=== PATIENT | female | born 1960 | race American Indian/Alaskan Native ===

== ENCOUNTER 2021-03-10 00:11 | Emergency (ER) | payer MEDICARE ==
--- NOTE | 2021-03-10 01:17 | Emergency Department Report ---
ED Psych HPI - General Chief Complaint: Psych Stated Complaint: MH EVAL Time Seen by Provider: 03/10/21 00:50 Source: patient, EMS Mode of arrival: Ambulatory Limitations: No Limitations - History of Present Illness Initial Comments: Patient is a 60-year-old female who presents emergency room with complaints of suicidal ideation, hallucinations. Patient states that she is off her meds. Patient states her plan is to overdose. Patient denies physical symptoms. Patient states she feels depressed. Patient denies chest pain shortness of breath. Patient denies fever and chills. Patient denies recent travel. Patient denies recent international travel. Patient denies exposure to the novel coronavirus. Patient denies sick contacts. Patient denies fever and chills. Patient denies cough. Patient denies diarrhea. Patient denies coming in contact with anybody with symptoms of the novel coronavirus. Patient states she is off her medications. MD Complaint: suicidal ideation, feels depressed -: Sudden, week(s) Associated Psychiatric Symptoms: depression, suicidal ideation, racing thoughts, auditory hallucinations, visual hallucinations History of same: Yes Quality: constant Improves With: none Worsens With: none Context: not taking psychiatric, significant life stressor Associated Symptoms: denies: confusion, headache, shortness of breath, nausea, vomiting, syncope, insomnia Treatments Prior to Arrival: none If Self Harm: admits thoughts of, has plan - Related Data Allergies Allergy/AdvReac Type Severity Reaction Status Date / Time No Known Allergies Allergy Verified 03/10/21 00:30 ED Review of Systems ROS: Stated complaint: MH EVAL Other details as noted in HPI Constitutional: denies: chills, fever Eyes: denies: eye pain, eye discharge, vision change ENT: denies: ear pain, throat pain Respiratory: denies: cough, shortness of breath, wheezing Cardiovascular: denies: chest pain, palpitations Endocrine: no symptoms reported Gastrointestinal: denies: abdominal pain, nausea, diarrhea Genitourinary: denies: urgency, dysuria, discharge Musculoskeletal: denies: back pain, joint swelling, arthralgia Skin: denies: rash, lesions Neurological: denies: headache, weakness, paresthesias Psychiatric: as per HPI, depression, auditory hallucinations, visual halluci nations, suicidal thoughts. denies: anxiety Hematological/Lymphatic: denies: easy bleeding, easy bruising ED Past Medical Hx - Past Medical History Previous Medical History?: Yes Hx Psychiatric Treatment: Yes - Surgical History Past Surgical History?: No - Family History Family history: no significant - Social History Smoking Status: Never Smoker Substance Use Type: Alcohol ED Physical Exam - General Limitations: No Limitations General appearance: alert, in no apparent distress - Head Head exam: Present: atraumatic, normocephalic - Eye Eye exam: Present: normal appearance - ENT ENT exam: Present: mucous membranes moist - Neck Neck exam: Present: normal inspection - Respiratory Respiratory exam: Present: normal lung sounds bilaterally. Absent: respiratory distress - Cardiovascular Cardiovascular Exam: Present: regular rate, normal rhythm. Absent: systolic murmur, diastolic murmur, rubs, gallop - GI/Abdominal GI/Abdominal exam: Present: soft, normal bowel sounds - Extremities Exam Extremities exam: Present: normal inspection - Back Exam Back exam: Present: normal inspection - Neurological Exam Neurological exam: Present: alert, oriented X3 - Psychiatric Psychiatric exam: Present: depressed, flat affect, suicidal ideation - Skin Skin exam: Present: warm, dry, intact, normal color. Absent: rash ED Course Vital Signs 03/10/21 03/10/21 03/10/21 00:30 00:59 01:13 Temperature 98.7 F 98.7 F Pulse Rate 89 89 Respiratory 16 16 16 Rate Blood Pressure 136/78 Blood Pressure 136/78 [Left] O2 Sat by Pulse 98 98 98 Oximetry 03/10/21 07:43 Temperature 98.6 F Pulse Rate 69 Respiratory 20 Rate Blood Pressure Blood Pressure 157/74 [Left] O2 Sat by Pulse 98 Oximetry - Reevaluation(s) Reevaluation #1: Patient placed on a ER hold. 03/10/21 01:15 Reevaluation #2: Patient is medically cleared. Patient will remain in the ER as an ER hold until the patient is cleared by our psychiatry team. Patient's final disposition will come from our psychiatry team. 03/10/21 03:48 ED Medical Decision Making - Lab Data Result diagrams: 03/10/21 01:27 03/10/21 10:35 - Medical Decision Making Patient is a 60-year-old female who presents emergency room with complaints of being off her meds and having suicidal ideations. Patient also has a plan. Patient also complains of hallucinations. Patient had labs done which were essentially unremarkable except for acute intoxication. Patient is medically cleared. Patient will remain in the ER as an ER hold until the patient is cleared by our psychiatry team. Patient's final disposition will come from our psychiatry team. - Differential Diagnosis Noncompliance, suicidal ideations, hallucinations, psychosis Critical care attestation.: If time is entered above; I have spent that time in minutes in the direct care of this critically ill patient, excluding procedure time. ED Disposition Clinical Impression: Suicidal ideations, Hallucinations Acute alcohol intoxication Qualifiers: Complication of substance-induced condition: with unspecified complication Qualified Code(s): F10.929 - Alcohol use, unspecified with intoxication, unspecified Disposition: HOME / SELF CARE / HOMELESS Is pt being admited?: No Does the pt Need Aspirin: No Condition: Stable Instructions: Binge-Drinking Information, Adult, Suicidal Feelings: How to Help Yourself Additional Instructions: OUTPATIENT MENTAL HEALTH RESOURCES [facility], [facility] Jeannie Collado MD: [address], [address] [facility] [address] [place] [address] [place] [address] [facility]: [facility] [place] [address] [place] [address] [place] [address] [phone] [facility]: [facility]: [address] [facility] [address] [place] [address] [place] [address] [facility] [address] [facility]: Sp Smith MD: [address] [facility] 110 [facility] [id number] [facility]: [address] [place], [place] [id number] [phone] [place] CRISIS AND ACCESS LINE: HOMELESS RESOURCES: [facility] NEED HELP? If you are in need of help or know someone who does, please contact us at [email or web address] call , or come to our offices at [address] [place] [address], [place] [address], Sunday-Sunday beginning 9:30 AM-1:30 PM -Support services help people with getting identification and legal documents -Homeless verification letter -Facesheet (if needed) [facility] Males only Admission at 7am Mon to Sun Address: [place] [address] Client Engagement [phone] Regular program admission occurs Sunday through Sunday at 7:00 amand operates on a first come, first serve basis.Because we cant anticipate program availability in advance andprogram spots are in high demand, we recommend arriving early. Space fills up fast! Next steps can include: Assignment to a [facility] program bed Connection to and placement in a partner program, or Referral to a partner agency [facility]: PETTY Whitman Address: [address] [place] [id number] How do I join the [facility] housing program? Our housing programs are offered based on availability. If you are looking to participate in our housing program, simply call [phone] to find out if we have available space. Since we do receive many calls, please allow up to 48 hours for one of our housing specialists to return your call. If we do not have vacancies, we suggest callingthe [facility] hotline at 211 for additional housing options. [facility] Admission from 8am to 10am Daily No intake until 05/24/20 Address: [address] [place] [id number] [facility] WOMEN and FAMILY Admission Address: [address] [place] [id number] Transitional Shelter Providers: Triston Munguia Crow [phone] Address: [address] [place], [place] [id number] Original: Cm Akers [phone] Ms. Rivas: Renee Faye [phone] Ms. Kate Ryan Cm [facility] [phone] Ms. Grewal: [facility] [phone] [facility] Home: Avani Castañeda [phone] [facility] Referrals: PRIMARY CAREMD [Primary Care Provider] - 3-5 Days LUCIANO GARCIA MD [Staff Physician] - 3-5 Days Time of Disposition: 03:47
[2021-03-10 01:46] LABS: Basophils % (Auto) 0.2 % (0.0-1.8); Eosinophils % (Auto) 0.8 % (0.0-4.3); Hematocrit 37.9 % (30.3-42.9); Hemoglobin 12.7 gm/dl (10.1-14.3); Lymphocytes # (Auto) 1.5 K/mm3 (1.2-5.4); Lymphocytes % (Auto) 30.8 % (13.4-35.0); Mean Corpuscular HGB Conc 34 % (30-34); Mean Corpuscular Volume 98 fl (79-97); Monocytes # (Auto) 0.4 K/mm3 (0.0-0.8); Monocytes % (Auto) 7.6 % (0.0-7.3); Platelet Count 107 K/mm3 (140-440); Red Blood Count 3.86 M/mm3 (3.65-5.03); Red Cell Distribution Width 14.7 % (13.2-15.2)
[2021-03-10 02:02] LABS: Alanine Aminotransferase 16 units/L (7-56); Albumin 4.3 g/dL (3.9-5); Blood Urea Nitrogen 13 mg/dL (7-17); Calcium 9.1 mg/dL (8.4-10.2); Hemolysis Index 3
[2021-03-10 02:08] LABS: BUN/Creatinine Ratio 19
[2021-03-10 04:11] LABS: Amphetamine Screen,Urine Negative; Benzodiazepines Screen,Urine Negative; Cannabinoid Screen,Urine Negative; Methadone Screen,Urine Negative; Opiate Screen,Urine Negative
[2021-03-10 04:16] LABS: Bacteria,Urine 1+ /HPF (Negative); Bilirubin,Urine NEG (Negative); Blood,Urine SM (Negative); Color,Urine Yellow (Yellow); Mucus,Urine FEW /HPF; Urobilinogen,Urine < 2.0 mg/dL (<2.0)
[2021-03-10 04:33] LABS: Cocaine Screen,Urine PRESUMPTIVE POSITIVE
[2021-03-10 07:44] VITALS: BP 157/74
--- NOTE | 2021-03-10 10:19 | Emergency Department Report ---
Blank Doc - Documentation Documentation: 1020-patient has been seen this morning and is resting. We are currently waiting psychiatric evaluation and disposition. Patient is clinically sober. Labs have been reviewed. 1135-psychiatric note was reviewed from this morning. They are not recommending admission. Patient was discharged.
--- NOTE | 2021-03-10 11:08 | Consultation ---
History of Present Illness - Reason for Consult Consult date: 03/10/21 Reason for consult: SI, ETOH - History of Present Psychiatric Illness Moiz Amaya is a 60y/o male patient who was seen today. She is lying down asleep. She easily arouses. She is calm and cooperative. The patient says she doesn't have anywhere to live. She says that's why she came to the hospital. The says "on and off" when asked her was she still suicidal. She says "my son put me out cause I threw food in the floor because he used up my food stamps." She says she can't afford a alf when discussing with her that option. The patient says she drinks a pint of alcohol a day. She denies any other illicit drug use. The patient says she has a history of schizophrenia, but states she doesn't remember her meds. She states she has not been taking them. She denies hallucinations of any kind. PAST PSYCHIATRIC HISTORY: Diagnoses: schizophrenia Suicide attempts or Self-harm behavior: Denies Prior psychiatric hospitalizations: Denies Substance Abuse history: Denies Previous psychiatric medications tried: could not recall Outpatient treatment: Denies PAST MEDICAL HISTORY: None reported or document Family Psychiatric History: None reported or documented SOCIAL HISTORY Marital Status: Single Living Arrangements: with son, but he put her out Employment Status: disabled Access to guns/weapons: Denies Education: History of Abuse: Denies Legal History: unknown REVIEW OF SYSTEMS Constitutional: Negative for weight loss ENT: Negative for stridor Respiratory: Negative for cough or hemoptysis All other systems reviewed and are negative MENTAL STATUS EXAMINATION General Appearance and Behavior: Age appropriate, good hygiene, wearing appropriate clothes. calm, cooperative Cooperation: Cooperative Psychomotor Behavior: Psychomotor normal Mood: okay Affect and affective range: Congruent with stated mood Thought Process: goal directed Thought Content: None Speech: normal tone and pace Suicidal Ideation: on and off Homicidal Ideation: Denies Hallucinations: Denies Delusions: None elicited Impulse Control: Normal Insight and Judgment: Limited Memory: Limited Attention: attentive Orientation: a/o x 3 Assessment (1) ETOH Dependence (2) Hx of schizophrenia Treatment Plan No meds prescribed at this time The patient to reestablish outpatient psychiatry The patient to comply with previously prescribed medications Risks, benefits and alternatives of medications discussed with the patient, questions answered and consent obtained from patient. PSYCHOTHERAPY: Supportive psychotherapy provided MEDICAL: Per primary team DELIRIUM PRECAUTIONS: Please re-orient patient frequently, keep lights on during the day, and minimize benzodiazepines and opiates as these medications could worsen patient's confusion. OPAL POLISHER: Defer to primary DISPOSITION: Do not recommend acute psychiatric inpatient at this time. The patient understands that if suicidal thoughts are to return she is to seek immediate assistance. The director of vendor management to further discuss safety plan, and give the patient all necessary resources including rehab, CBT, med management and long-term/group homes. Please give her a transportation pass if necessary. Will sign off. Thank you. Case staffed with Dr. Bustos Medications and Allergies Allergies Allergy/AdvReac Type Severity Reaction Status Date / Time No Known Allergies Allergy Verified 03/10/21 00:30 Mental Status Exam - Vital signs Last Vital Signs Temp 98.6 F 03/10/21 07:43 Pulse 69 03/10/21 07:43 Resp 20 03/10/21 07:43 BP 157/74 03/10/21 07:43 Pulse Ox 98 03/10/21 07:43 Results Result Diagrams: 03/10/21 01:27 03/10/21 01:27 Abnormal lab results 03/10/21 03/10/21 03/10/21 Range/Units 01:27 01:27 01:27 MCV 98 H (79-97) fl MCH 33 H (28-32) pg Plt Count 107 L (140-440) K/mm3 [place] % (Auto) 7.6 H (0.0-7.3) % Sodium 146 H (137-145) mmol/L Glucose 139 H (65-100) mg/dL AST 42 H (5-40) units/L Alkaline Phosphatase 148 H (35-129) units/L Salicylates < 0.3 L (2.8-20.0) mg/dL Acetaminophen (10.0-30.0) ug/mL Plasma/Serum Alcohol (0-0.07) % 03/10/21 03/10/21 Range/Units 01:27 01:27 MCV (79-97) fl MCH (28-32) pg Plt Count (140-440) K/mm3 [place] % (Auto) (0.0-7.3) % Sodium (137-145) mmol/L Glucose (65-100) mg/dL AST (5-40) units/L Alkaline Phosphatase (35-129) units/L Salicylates (2.8-20.0) mg/dL Acetaminophen 5.0 L (10.0-30.0) ug/mL Plasma/Serum Alcohol 0.26 H (0-0.07) % All other labs normal.
[2021-03-10 11:23] LABS: Blood Urea Nitrogen 11 mg/dL (7-17); Hemolysis Index 29
[2021-03-10 11:34] LABS: BUN/Creatinine Ratio 28
== END 2021-03-10 12:44 | disposition home or self-care (01) ==
LOC: EEVIPCON 00:11 → ED 00:11
DX: R45.851 Suicidal ideations (principal); R44.1 Visual hallucinations; R44.2 Other hallucinations; F10.129 Alcohol abuse with intoxication, unspecified; Z20.822 Contact with and (suspected) exposure to COVID-19
CPT/HCPCS: 36415; 80048; 80053; 80307; 81001; 85025; 99284; U0003; 80320; G0480